=== PATIENT | female | born 1985 | race Caucasian/White ===

== ENCOUNTER 2017-03-04 01:16 | Emergency (ER) | payer SELFPAY ==
[~2017-03-04] VITALS: Ht 167.6 cm; Wt 54.4 kg
[2017-03-04 01:55] LABS: Urine RBC None Seen /hpf (0 - 4)
[2017-03-04 02:22] LABS: Basophils # (auto) 0 uL; CONDITION Y; Eosinophils # (auto) 0 uL; Hematocrit 39.2 % (36.0-46.0); Hemoglobin 13.7 g/dL (12.2-16.2); Lymphocytes # (auto) 0.8 uL; Lymphocytes % (auto) 5.5 % (10.0-50.0); Mean Corpuscular Hemoglobin 31.9 pg (28.0-32.0); Mean Corpuscular Hgb Conc. 34.9 g/dL (32.0-36.0); Mean Corpuscular Volume 91.5 fL (80.0-100.0); Mean Platelet Volume 7.3 fL (7.4-10.4); Monocytes # (auto) 0.4 uL; Monocytes % (auto) 2.9 % (0.0-12.0); Neutrophils # (auto) 13.9 uL; Neutrophils % (auto) 91.6 % (37.0-80.0); Platelet Count (auto) 362 10^3/uL (140-450); Red Cell Distribution Width 12.9 % (11.6-16.0); White Blood Cell 15.1 10^3/uL (4.4-10.8)
[2017-03-04] MEDS ORDERED: SODIUM CHLORIDE 0.9% 1,000 ML IV ONE ×3 (02:30→07:17)
[2017-03-04 02:52] LABS: Urine Bilirubin Negative (Negative); Urine Blood Negative /uL (Negative); Urine Color Yellow (Yellow); Urine Glucose Normal (Normal); Urine Hyaline Cast FEW /lpf (0 - 2); Urine Nitrite Negative (Negative); Urine Squamous Epithelial Cell FEW /hpf (<5); Urine Urobilinogen Normal (Negative)
[2017-03-04 02:52] LABS: Albumin 3.6 g/dL (3.4-5.0); BUN/Creatinine Ratio 26.8; Potassium 3.9 mmol/L (3.5-5.1)
[2017-03-04 02:55] LABS: Bilirubin, Total 0.6 mg/dL (0.2-1.0); Total Protein 6.7 g/dL (6.4-8.2)
[2017-03-04 02:56] LABS: Urine Ketone 3+ (Negative)
[2017-03-04 07:20] VITALS: BP 102/57
[2017-03-04] MEDS ORDERED: PROMETHAZINE HCL 25 MG/ML 1ML IV ONE (07:45)
[2017-03-04] MEDS ORDERED: PANTOPRAZOLE SODIUM 40 MG/10 ML VIAL IV ONE (07:45)
[2017-03-04] MEDS ORDERED: cefTRIAXone 1GM/50ML D5W 50 ML IV ONE (07:45)
== END 2017-03-04 09:25 | disposition home or self-care (01) ==
LOC: ER 01:16
DX: T67.5XXA Heat exhaustion, unspecified, initial encounter (principal); E86.0 Dehydration; X58.XXXA Exposure to other specified factors, initial encounter; Y93.89 Activity, other specified; Y92.89 Other specified places as the place of occurrence of the external cause; Y99.8 Other external cause status
CPT/HCPCS: 36415; 80053; 80307; 80320; 81001; 81025; 82150; 82962; 83690; 85025; 93005; 96361; 96365; 96375; 99285; C9113; J0696; J2550; J7030